=== PATIENT | female | born 1960 | race Caucasian/White ===

== ENCOUNTER 2024-02-04 15:57 | Emergency (ER) | payer MEDICAID ==
[~2024-02-04] VITALS: Ht 160 cm; Wt 63.5 kg
[2024-02-04 16:09] VITALS: BP_SYST 143; PULSE 85; RESP 16; TEMP 97.6; O2SAT 96
[2024-02-04 17:04] LABS: BASOPHILS # (AUTO) 0.1 K/uL (0.0-0.2); BASOPHILS % (AUTO) 0.9 % (0.0-2.0); EOSINOPHILS # (AUTO) 0.2 K/uL (0.0-0.4); HEMATOCRIT 42.5 % (36-48); HEMOGLOBIN 14.4 g/dL (12.0-16.0); LYMPHOCYTES % (AUTO) 38.2 % (20.5-51.5); MEAN CORPUSCULAR HEMOGLOBIN 28 pg (27-31); MEAN CORPUSCULAR HGB CONC 34 % (32-36); MEAN CORPUSCULAR VOLUME 84 fL (79.0-98.0); MONOCYTES # (AUTO) 0.5 K/uL (0.0-1.0); MONOCYTES % (AUTO) 6.1 % (1.7-9.3); NEUTROPHILS # (AUTO) 4.2 K/uL (1.8-7.7); NEUTROPHILS % (AUTO) 52.8 % (40.0-70.0); PLATELET COUNT (AUTO) 290 K/uL (130-430); RED BLOOD CELL COUNT(AUTO) 5.08 MIL/uL (4.2-6.2); RED CELL DISTRIBUTION WIDTH 12.6 % (9.0-15.0)
[2024-02-04 17:17] LABS: ACETONE, SERUM NEGATIVE (NEGATIVE)
[2024-02-04 17:20] LABS: ALANINE AMINOTRANSFERASE 30 U/L (12-78); ALBUMIN 4.1 g/dL (3.4-4.8); ANION GAP 8 (5-15); ASPARTATE AMINOTRANSFERASE 18 U/L (10-37); CALCIUM 9.2 mg/dL (8.4-11.0); CARBON DIOXIDE 29 mmol/L (23-29); CHLORIDE 101 mmol/L (98-107); CREATININE 1.02 mg/dL (0.55-1.30); GFR AFRICAN AMERICAN 71 mL/min (>90); GLUCOSE 301 mg/dL (74-106); POTASSIUM 4.2 mmol/L (3.5-5.1); SODIUM SERUM 138 mmol/L (136-145); TOTAL BILIRUBIN 0.7 mg/dL (0.0-1.0); UREA NITROGEN, BLOOD 10 mg/dL (8-21)
[2024-02-04] MEDS: NACL 0.9% 2,000 ML IV ONE (18:14)
[2024-02-04] MEDS: metFORMIN HCL 500 MG TABLET PO ONE (18:22)
[2024-02-04] MEDS ORDERED: LISI10TA29 PO (19:21)
[2024-02-04] MEDS ORDERED: METF-518 PO (19:21)
== END 2024-02-04 19:27 | disposition home or self-care (01) ==
LOC: SED 15:57
DX: E11.65 Type 2 diabetes mellitus with hyperglycemia (principal); R51.9 Headache, unspecified; Z91.148 Patient's other noncompliance with medication regimen for other reason; I10 Essential (primary) hypertension; Z91.041 Radiographic dye allergy status; Z88.1 Allergy status to other antibiotic agents
CPT/HCPCS: 99284; 96360; 70450; 80053; 82009; 85025; 36415; 93005; 82948; J7030